=== PATIENT | female | born 1970 | race Caucasian/White ===

== ENCOUNTER 2017-03-18 15:14 | Outpatient (CLI) | payer OTHER ==
--- NOTE | 2017-03-19 12:58 | XRAY Report ---
TWO VIEW CHEST: 03/19/2017 CLINICAL INDICATION: Chest pain on breathing. COMPARISON: 06/09/2007. FINDINGS: Frontal and lateral views of the chest demonstrate a normal cardiac silhouette. The lungs are clear. No effusion or pneumothorax is present. IMPRESSION: NORMAL CHEST. TD: 03/19/2017 12:57
== END 2017-03-18 15:15 | disposition home or self-care (01) ==
LOC: DI.S 15:14
PROVIDERS: ATTEND Internal Medicine
DX: R07.1 Chest pain on breathing (principal)
CPT/HCPCS: 71046

== ENCOUNTER 2017-03-19 13:17 | Outpatient (CLI) | payer OTHER ==
--- NOTE | 2017-03-20 15:27 | Mammography Report ---
DIGITAL SCREENING MAMMOGRAM: 03/19/2017 CLINICAL INDICATION: A 46-year-old with history of bilateral implants, for screening. TECHNIQUE: Routine CC and MLO projections were obtained of the breasts. Bilateral implant-displaced views. COMPARISON: 07/2007. FINDINGS: The breasts again demonstrate heterogeneously dense fibroglandular parenchyma bilaterally. A few coarse, typically benign calcifications are present. Bilateral subpectoral silicone implants are present. No suspicious masses, clustered microcalcifications, or regions of architectural distortion are identified. IMPRESSION: BENIGN FINDINGS. RECOMMENDATION: ROUTINE ANNUAL SCREENING UNLESS OTHERWISE CLINICALLY INDICATED. BIRADS CATEGORY 2-BENIGN FINDINGS. STANDARD QUALIFYING STATEMENTS: 1. This examination was reviewed with the aid of Computer-Aided Detection (CAD). 2. A negative or benign imaging report should not delay biopsy if clinically suspicious findings are present. Consider surgical consultation if warranted. More than 5% of cancers are not identified by imaging. 3. Dense breasts may obscure an underlying neoplasm. TD: 03/20/2017 15:27
== END 2017-03-19 13:18 | disposition home or self-care (01) ==
LOC: DI.S 13:17
PROVIDERS: ATTEND Internal Medicine
DX: Z12.31 Encounter for screening mammogram for malignant neoplasm of breast (principal); Z98.82 Breast implant status
CPT/HCPCS: 77067

== ENCOUNTER 2017-08-04 13:03 | Outpatient (CLI) | payer OTHER ==
--- NOTE | 2017-08-04 14:06 | XRAY Report ---
Procedure Date: 08/04/2017 Accession Number: [id number] / [id number] Procedure: XRS - Cervical Spine Complete CPT Code: FULL RESULT: EXAM: Cervical Spine Complete DATE: 08/04/2017 1:40 PM CLINICAL HISTORY: Neck pain COMPARISON: MRI 05/12/2008 TECHNIQUE: 5 views. FINDINGS: Alignment: Normal. No spondylolisthesis or scoliosis. Bones: The cervical vertebral bodies and posterior elements are well visualized from the skull base through C7-T1. No fractures or bone lesions. Disks: Degenerative disc disease at C5-6 and 6-7, with bilateral osseous neuroforaminal narrowing. Facets: Degenerative facet disease at C5-6 and C6-7. Soft Tissues: Normal. No prevertebral soft tissue swelling. The visualized lung apices are clear. IMPRESSION: Degenerative changes at C5-6 and 6-7, with bilateral osseous neural foraminal narrowing. No evidence of fracture. RADIA
--- NOTE | 2017-08-04 14:07 | XRAY Report ---
Procedure Date: 08/04/2017 Accession Number: [id number] / [id number] Procedure: XRS - Lumbar Spine 2 View CPT Code: FULL RESULT: EXAM: Lumbar Spine 2 View DATE: 08/04/2017 1:40 PM CLINICAL HISTORY: PAIN IN LEFT HIP,DORSALGIA, UNSPECIFIED COMPARISON: None. TECHNIQUE: 3 views. FINDINGS: Alignment: Minimal levoscoliosis, which may be positional in nature. Bones: Five sei-cim-kmrbtmd lumbar vertebral bodies are present. No fractures or bone lesions. Disks: Normal. Disk heights are maintained. Facets: Minimal facet arthropathy at L5-S1. Sacroiliac Joints: Unremarkable. Soft Tissues: Normal. The visualized bowel gas pattern is normal. IMPRESSION: Minimal degenerative changes. No evidence of fracture. RADIA
--- NOTE | 2017-08-04 14:07 | XRAY Report ---
Procedure Date: 08/04/2017 Accession Number: [id number] / [id number] Procedure: XRS - Hip w/Pelvis 2-3V LT CPT Code: FULL RESULT: EXAM: Hip w/Pelvis 2-3V LT DATE: 08/04/2017 1:39 PM CLINICAL HISTORY: PAIN IN LEFT HIP,DORSALGIA, UNSPECIFIED COMPARISON: None. TECHNIQUE: 1 view of the pelvis and 1 view of the hip. FINDINGS: Bones: Normal. No fracture or bone lesion. Joints: The bilateral hip, pubis symphysis, and sacroiliac joints are preserved. Soft Tissues: Normal. No soft tissue swelling. IMPRESSION: Normal pelvis and hip radiography. RADIA
== END 2017-08-04 13:04 | disposition home or self-care (01) ==
LOC: DI.S 13:03
PROVIDERS: ATTEND Internal Medicine
DX: M25.552 Pain in left hip (principal); M50.322 Other cervical disc degeneration at C5-C6 level; M47.892 Other spondylosis, cervical region; M47.897 Other spondylosis, lumbosacral region
CPT/HCPCS: 72050; 72100

== ENCOUNTER 2017-08-20 12:44 | Outpatient (CLI) | payer OTHER ==
[2017-08-20] MEDS ORDERED: GADOBUTROL 7.5 MMOL/7.5 ML VIAL IVP ONE (18:37)
--- NOTE | 2017-08-21 16:01 | MRI Report ---
Procedure Date: 08/20/2017 Accession Number: [id number] / [id number] Procedure: MRI - Cervical Spine W/WO CPT Code: FULL RESULT: EXAM: MRI CERVICAL SPINE WITHOUT AND WITH CONTRAST EXAM DATE: 08/20/2017 03:31 PM. CLINICAL HISTORY: 46-year-old female. CERVICALGIA. COMPARISON: MRI cervical spine 05/12/2008. TECHNIQUE: Multiplanar, multisequence T1-weighted and fluid-sensitive sequences of the cervical spine before and after administration of intravenous contrast. Other: None. IV contrast: 6 is a Gadavist. FINDINGS: Neurologic Structures: The visualized posterior fossa structures are unremarkable. No signal abnormality in the visualized spinal cord. Alignment: Grade 1 retrolisthesis C6 on C7 measuring 2 mm. Bone Marrow: No gross fractures or bone lesions. No marrow edema or abnormal enhancement. Redemonstration moderate diffuse, likely congenital shallowness of cervical central canal with canal AP diameter measuring 10-11 mm at most cervical levels. Interspace Levels/Facets: C1-C2: Unremarkable. C2-C3: Minimal disk bulge. No significant central canal or foraminal narrowing. No interval progression. C3-C4: Mild disk bulge, slightly progressed since the prior study. Mild central canal narrowing, slightly progressed, no foraminal narrowing. C4-C5: Mild distal, slightly progressed. Mild central canal narrowing, slightly progressed. No foraminal narrowing. C5-C6: Moderate disk height loss and desiccation. Moderate posterior disk osteophyte complex, slightly increased. Moderate right and mild left uncovertebral spurring. Moderate central canal narrowing, slightly progressed. Gtgu-na-uxmunvlg right and mild left foraminal narrowing, slightly progressed. C6-C7: Moderate disk height loss and desiccation. Moderate posterior disk osteophyte complex. Moderate bilateral uncovertebral spurring. Moderate right and mild left facet arthropathy. Moderate central canal narrowing, slightly progressed. Ybxf-tz-txnnqpuw bilateral foraminal narrowing, slightly progressed. C7-T1: Unremarkable. Spinal Canal: No enhancing lesions within the spinal canal. No epidural abscess. Musculature: Normal. No edema, enhancement, or fatty atrophy. Other: The paravertebral and prevertebral soft tissues are normal. IMPRESSION: 1. Mild to moderate multilevel degenerative spondylosis, as detailed above and summarized below. Compared to the prior study from 05/12/2008, there has been slight interval progression of central canal/foraminal narrowing at most levels. 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 2. C3-C4 level demonstrates mild central canal narrowing, slightly progressed, no foraminal narrowing. 3. C4-C5 level demonstrates mild central canal narrowing, slightly progressed. No foraminal narrowing. 4. C5-C6 level demonstrates moderate central canal narrowing, slightly progressed. Jrqy-pp-xhvazbgx right and mild left foraminal narrowing, slightly progressed. 5. C6-C7 level demonstrates moderate central canal narrowing, slightly progressed. Oqio-yz-vqpnztpc bilateral foraminal narrowing, slightly progressed. RADIA
== END 2017-08-20 12:45 | disposition home or self-care (01) ==
LOC: DI 12:44
PROVIDERS: ATTEND Internal Medicine
DX: M50.31 Other cervical disc degeneration, high cervical region (principal); M47.892 Other spondylosis, cervical region; M48.02 Spinal stenosis, cervical region
CPT/HCPCS: 72156; A9585

== ENCOUNTER 2017-11-10 13:55 | Outpatient (CLI) | payer OTHER ==
--- NOTE | 2017-11-10 15:23 | MRI Report ---
Reason: CERVICAL SPINE DEGENERATION Procedure Date: 11/10/2017 Accession Number: [id number] / [id number] Procedure: MRI - Thoracic Spine W/O CPT Code: FULL RESULT: EXAM: MRI THORACIC SPINE WITHOUT CONTRAST EXAM DATE: 11/10/2017 02:47 PM. CLINICAL HISTORY: 46-year-old with back pain and radiculopathy. Evaluate for thoracic pathology. COMPARISONS: MR cervical spine 08/20/2017; MR lumbar spine 11/10/2017. TECHNIQUE: Multiplanar, multisequence T1-weighted and fluid-sensitive sequences of the thoracic spine from C7 to L1 without contrast. Other: None. FINDINGS: Spinal Canal: No signal abnormality in the visualized spinal cord. Alignment: No scoliosis or spondylolisthesis. Bone Marrow: No acute fracture. There is endplate edema seen at L1-L2 and L2-L3 there may be degenerative in nature. No abnormal marrow replacing lesion. Disk Levels/Facets: Mild endplate degenerative change with mild loss of disk height and disk desiccation seen from C7-T1 to T11-T12. No definite spinal protrusion/bulge seen. Minimal bilateral foot across that disease. No significant spinal canal stenosis. No significant neural foraminal narrowing. Musculature: Normal. No edema or fatty atrophy. Other: The visualized lungs, mediastinum, and abdominal cavity are unremarkable. IMPRESSION: 1. No definite T2 signal hyperintense lesion seen within the visualized thoracic cord. 2. Minimal multilevel degenerative changes with no significant spinal canal stenosis or neuroforaminal narrowing seen within the thoracic spine. RADIA
== END 2017-11-10 13:56 | disposition home or self-care (01) ==
LOC: DI 13:55
PROVIDERS: ATTEND Nurse Practitioner Family
DX: M54.6 Pain in thoracic spine (principal); M47.812 Spondylosis without myelopathy or radiculopathy, cervical region; M51.16 Intervertebral disc disorders with radiculopathy, lumbar region; M48.061 Spinal stenosis, lumbar region without neurogenic claudication
CPT/HCPCS: 72146; 72148

== ENCOUNTER 2017-11-10 14:08 | Outpatient (CLI) | payer OTHER ==
--- NOTE | 2017-11-10 15:28 | MRI Report ---
Reason: RADICULAR LEG PAIN Procedure Date: 11/10/2017 Accession Number: [id number] / [id number] Procedure: MRI - Lumbar Spine W/O CPT Code: FULL RESULT: EXAM: MRI LUMBAR SPINE WITHOUT CONTRAST EXAM DATE: 11/10/2017 03:13 PM. CLINICAL HISTORY: 47-year-old with low back pain and bilateral radicular leg pain. COMPARISON: Lumbar radiographs 08/04/2017; MR thoracic spine 11/10/2017. TECHNIQUE: Multiplanar, multisequence T1-weighted and fluid-sensitive sequences of the lumbar spine from T12 to S1 without contrast. Other: None. FINDINGS: Spinal Canal: The conus terminates at L1-L2. The conus medullaris and cauda equina are unremarkable. Alignment: There is minimal grade 1 retrolisthesis of L2 on L3, L3 on L4 and L5 on S1. Bone Marrow: Five kns-jhl-ganekek lumbar vertebral bodies are assumed. No acute fracture. There is endplate edema seen at L1-L2 and L2-L3 there may be degenerative in nature. No abnormal marrow replacing lesion. Disk Levels/Facets: Mild endplate degenerative changes with mild loss of disk height and disk desiccation seen throughout the lumbar spine. T11-T12: Minimal bilateral arthritic facet disease. No spinal canal stenosis. No neural foraminal narrowing. T12-L1: Minimal bilateral arthritic facet disease. No spinal canal stenosis. No neuroforaminal narrowing. L1-L2: Minimal bilateral arthritic facet disease. Fluid is seen within the facets bilaterally. No spinal canal stenosis. No neural foraminal narrowing. L2-L3: Minimal bilateral arthritic facet disease. No spinal canal stenosis. No neural foraminal narrowing. L3-L4: Minimal bilateral arthritic facet disease. No spinal canal stenosis. No neural foraminal narrowing. L4-L5: Small posterior disk bulge, bilateral thick facet disease, prominent epidural fat. Mild to moderate spinal canal stenosis. Mild bilateral neuroforaminal narrowing. L5-S1: Small posterior disk bulge and bilateral thick facet disease. Effacement of the lateral recesses. Minimal right and mild left neuroforaminal narrowing. Musculature: Normal. No edema or fatty atrophy. Other: The partially visualized retroperitoneum is unremarkable. IMPRESSION: 1. There is minimal grade 1 retrolisthesis of L2 on L3, L3 on L4 and L5 on S1. 2. Minimal multilevel degenerative changes. L4-L5: Mild to moderate spinal canal stenosis. Mild bilateral neuroforaminal narrowing. L5-S1: Effacement of the lateral recesses. Minimal right and mild left neuroforaminal narrowing. Comment: The following findings are so common in adults without low back pain that while we report their presence, they must be interpreted with caution and in the context of the clinical situation. (Reference Leak et al, Spine 2001) Prevalence of findings in patients without low back pain: Disk degeneration (any evidence): 92% Disk desiccation/T2 signal loss: 83% Disk height loss: 56% Disk bulge: 64% Disk protrusion: 32% Annular tear/high intensity zone: 38% RADIA
== END 2017-11-10 14:09 | disposition home or self-care (01) ==
LOC: DI 14:08
PROVIDERS: ATTEND Family Medicine
DX: M51.16 Intervertebral disc disorders with radiculopathy, lumbar region (principal); M48.061 Spinal stenosis, lumbar region without neurogenic claudication
CPT/HCPCS: 72148

== ENCOUNTER 2018-04-30 08:51 | Emergency (ER) | payer OTHER ==
[2018-04-30] MEDS ORDERED: ONDANSETRON ODT 4 MG TABLET TL STA (09:17)
--- NOTE | 2018-04-30 09:20 | ED Physician Documentation ---
PD HPI URI - Stated complaint Stated Complaint: NEAR SYNCOPE/FEVER/NAUSEA/SORE THROAT - Chief complaint Chief Complaint: General - History obtained from History obtained from: Patient - History of Present Illness Timing - onset: Yesterday Timing details: Still present Associated symptoms: Chills, Sore throat, Dry cough Similar symptoms before: Has not had sx before - Additional information Additional information: The patient is a 47-year-old female who presents with a plethora of symptoms, including sore throat, cough with shortness of breath, headache, myalgias, chills, and chest discomfort. Her symptoms started yesterday and are worse this morning. She vomited once this morning. She denies history of similar symptoms in the past. Review of Systems Constitutional: reports: Chills, Myalgias, Fatigue Eyes: denies: Irritation Ears: denies: Tinnitus/ringing Nose: reports: Congestion Throat: reports: Sore throat Cardiac: reports: Chest pain / pressure (upper substernal) Respiratory: reports: Dyspnea, Cough GI: reports: Nausea, Vomiting. denies: Abdominal Pain, Diarrhea : denies: Dysuria Skin: denies: Rash Musculoskeletal: denies: Extremity pain Neurologic: reports: Headache. denies: Focal weakness, Numbness PD PAST MEDICAL HISTORY - Past Medical History Cardiovascular: None Endocrine/Autoimmune: None - Present Medications Home Medications: Ambulatory Orders Medication Instructions Recorded Confirmed Oseltamivir [Tamiflu] 75 mg PO BID #10 capsule 04/30/18 - Allergies Allergies/Adverse Reactions: Allergies Allergy/AdvReac Type Severity Reaction Status Date / Time No Known Drug Allergies Allergy Verified 04/30/18 09:27 - Social History Does the pt smoke?: No PD ED PE NORMAL - Vitals Vital signs reviewed: Yes (normal) - General General: Alert and oriented X 3, Well developed/nourished, Other (Appears fa tigued.) - HEENT HEENT: Atraumatic, EOMI, Moist mucous membranes, Pharynx benign - Neck Neck: Supple, no meningeal sign, No adenopathy, No JVD - Cardiac Cardiac: RRR, No murmur - Respiratory Respiratory: Clear bilaterally - Abdomen Abdomen: Soft, Non tender - Back Back: No CVA TTP - Derm Derm: No rash - Extremities Extremities: No edema, No calf tenderness / cord - Neuro Neuro: Alert and oriented X 3, No motor deficit, Normal speech Results - Vitals Vitals: Vital Signs - 24 hr 04/30/18 04/30/18 08:55 09:25 Temperature 36.3 C L Heart Rate 66 63 Respiratory 16 16 Rate Blood Pressure 131/73 H 117/66 O2 Saturation 100 98 Oxygen O2 Source Room air - Labs Labs: Laboratory Tests 04/30/18 09:00 Influenza A (Rapid) POSITIVE H Influenza B (Rapid) Negative PD MEDICAL DECISION MAKING - ED course Complexity details: reviewed results, re-evaluated patient, considered differential, d/w patient ED course: The patient's presentation is most consistent with influenza, and her nasal swab is positive for influenza A. Her presentation does not suggest pneumonia. Treatment in the emergency department included administration of ibuprofen 800 mg orally and Tamiflu 75 mg orally. She is being discharged with prescription for Tamiflu. I discussed with her the expected course of illness, outpatient treatment and follow-up, as well as potentially worrisome signs or symptoms that should prompt reevaluation in the emergency department. Departure - Departure Disposition: 01 Home, Self Care Clinical Impression: Influenza A Condition: Stable Instructions: ED Flu Follow-Up: ZE DHALIWAL MD [Primary Care Provider] - Prescriptions: Oseltamivir [Tamiflu] 75 mg PO BID #10 capsule Comments: Drink plenty of fluids. Take Tamiflu twice daily as prescribed. You can use ibuprofen, up to 800 mg 3 times daily for its anti-inflammatory effect. Follow-up with your primary physician within 1-2 weeks. Call to schedule an appointment. Return to the emergency department if you develop increasing difficulty breathing, or otherwise worsening symptoms.
[2018-04-30] MEDS ORDERED: OSELTAMIVIR 75 MG CAPSULE PO STA (11:05)
[2018-04-30 11:14] VITALS: BP 112/69
== END 2018-04-30 11:15 | disposition home or self-care (01) ==
LOC: ED 08:51
DX: J10.1 Influenza due to other identified influenza virus with other respiratory manifestations (principal)
CPT/HCPCS: 87275; 87276; 99283; A9270; Q0162

== ENCOUNTER 2019-07-05 15:45 | Emergency (ER) | payer OTHER ==
[2019-07-05 16:09] LABS: BASOPHILS % (AUTO) 0.3 %; EOSINOPHILS % (AUTO) 0.2 %; HGB - HEMOGLOBIN 14.6 g/dL (12.0-16.0); LYMPHOCYTES # (AUTO) 1.2 10^3/uL (1.5-3.5); LYMPHOCYTES % (AUTO) 10.2 %; MEAN CORPUSCULAR HEMOGLOBIN 32.1 pg (27.0-31.0); MEAN CORPUSCULAR HGB CONC 33.4 g/dL (32.0-36.0); MEAN PLATELET VOLUME 11.4 fL (7.9-10.8); MONOCYTES # (AUTO) 0.5 10^3/uL (0.0-1.0); MONOCYTES % (AUTO) 4.6 %; NEUTROPHILS # (AUTO) 9.8 10^3/uL (1.5-6.6); NEUTROPHILS % (AUTO) 84.1 %; PLT - PLATELET COUNT 228 10^3/uL (130-450); RED BLOOD COUNT 4.55 10^6/uL (4.20-5.40); RED CELL DISTRIBUTION WIDTH 12.7 % (12.0-15.0); WHITE BLOOD COUNT 11.7 x10^3/uL (4.8-10.8)
[2019-07-05 16:21] LABS: ALBUMIN 4.2 g/dL (3.2-5.5); ALBUMIN/GLOBULIN RATIO 1.4 (1.0-2.2); BILIRUBIN,TOTAL 0.9 mg/dL (0.2-1.0); CALCIUM 8.7 mg/dL (8.5-10.3); CREATININE 0.7 mg/dL (0.4-1.0); TOTAL PROTEIN 7.2 g/dL (6.7-8.2)
--- NOTE | 2019-07-05 17:36 | ED Physician Documentation ---
PD HPI NVD - Stated complaint Stated Complaint: NAUSEA/VOMITING - Chief complaint Chief Complaint: Abd Pain - History obtained from History obtained from: Patient - History of Present Illness Timing - onset: Today, Last night Timing - details: Abrupt onset (sudden nausea with vomiting. No diarrhea. No noted unusual foods.), Still present (less vomiting into afternoon but still nauseated and feeling dehydrated/weak.) Associated symptoms: Loss of appetite. No: Fever, Abdominal pain, Chest pain, Hematemesis, Near syncope / syncope Contributing factors: No: Sick contact, Bad food, Alcohol use Improved by: No: Vomiting Worsened by: Eating Similar symptoms before: Has not had sx before Review of Systems Constitutional: reports: Chills, Myalgias. denies: Fever Nose: denies: Rhinorrhea / runny nose, Congestion Throat: denies: Sore throat Cardiac: denies: Chest pain / pressure Respiratory: denies: Cough GI: reports: Nausea, Vomiting. denies: Abdominal Pain, Diarrhea Neurologic: reports: Generalized weakness. denies: Focal weakness, Near syncope, Headache PD PAST MEDICAL HISTORY - Past Medical History Cardiovascular: None Endocrine/Autoimmune: None - Past Surgical History Past Surgical History: No /[employer]: Tubal ligation, Breast implants - Present Medications Home Medications: Ambulatory Orders Medication Instructions Recorded Confirmed Oseltamivir [Tamiflu] 75 mg PO BID #10 capsule 04/30/18 - Allergies Allergies/Adverse Reactions: Allergies Allergy/AdvReac Type Severity Reaction Status Date / Time No Known Drug Allergies Allergy Verified 07/05/19 15:57 - Social History Does the pt smoke?: No Smoking Status: Never smoker Does the pt drink ETOH?: No Does the pt have substance abuse?: No - Immunizations Immunizations are current?: Yes PD ED PE NORMAL - Vitals Vital signs reviewed: Yes - General General: Alert and oriented X 3, No acute distress, Well developed/nourished - HEENT HEENT: Pharynx benign. No: Moist mucous membranes - Neck Neck: Supple, no meningeal sign, No adenopathy - Cardiac Cardiac: RRR, No murmur - Respiratory Respiratory: Clear bilaterally - Abdomen Abdomen: Normal bowel sounds, Soft, Non tender, Non distended, No organomegaly - Back Back: No CVA TTP - Derm Derm: Normal color, Warm and dry - Neuro Neuro: Alert and oriented X 3, No motor deficit, Normal speech Results - Vitals Vitals: Vital Signs - 24 hr 07/05/19 07/05/19 07/05/19 15:53 17:35 19:10 Temperature 36.5 C 37 C Heart Rate 79 68 77 Respiratory 18 16 16 Rate Blood Pressure 118/87 H 123/83 H 116/76 O2 Saturation 98 99 100 07/05/19 07/05/19 07/05/19 19:16 19:49 20:02 Temperature Heart Rate Respiratory 17 16 16 Rate Blood Pressure O2 Saturation Oxygen O2 Source Room air - Labs Labs: Laboratory Tests 07/05/19 07/05/19 07/05/19 16:03 16:03 17:37 WBC 11.7 H RBC 4.55 Hgb 14.6 Hct 43.7 MCV 96.0 MCH 32.1 H MCHC 33.4 RDW 12.7 Plt Count 228 MPV 11.4 H Neut # (Auto) 9.8 H Lymph # (Auto) 1.2 L [place] # (Auto) 0.5 Eos # (Auto) 0.0 Baso # (Auto) 0.0 Absolute Nucleated RBC 0.00 Nucleated RBC % 0.0 Sodium 135 Potassium 3.8 Chloride 102 Carbon Dioxide 24 Anion Gap 9.0 BUN 11 Creatinine 0.7 Estimated GFR (MDRD) 89 Glucose 101 H Calcium 8.7 Total Bilirubin 0.9 AST 25 ALT 43 Alkaline Phosphatase 100 Total Protein 7.2 Albumin 4.2 Globulin 3.0 Albumin/Globulin Ratio 1.4 Lipase 28 Urine Color YELLOW Urine Clarity CLEAR Urine pH 7.0 Ur Specific [place] 1.010 Urine Protein NEGATIVE Urine Glucose (UA) NEGATIVE Urine Ketones 15 H Urine Occult Blood NEGATIVE Urine Nitrite NEGATIVE Urine Bilirubin NEGATIVE Urine Urobilinogen 0.2 (NORMAL) Ur Leukocyte Esterase NEGATIVE Ur Microscopic Review NOT INDICATED Urine Culture Comments NOT INDICATED PD MEDICAL DECISION MAKING - ED course Complexity details: re-evaluated patient (feeling much better after IV fluids. ), considered differential (seems likely food related or viral GE. Nontender abd so low suspicion for surgical process. ), d/w patient Departure - Departure Disposition: 01 Home, Self Care Clinical Impression: Dehydration Nausea and vomiting Qualifiers: Vomiting type: unspecified Vomiting Intractability: non-intractable Qualified Code(s): R11.2 - Nausea with vomiting, unspecified Condition: Stable Record reviewed to determine appropriate education?: Yes Instructions: ED Nausea Vomiting Comments: Frequent fluids. Use your ondansetron at home if needed for nausea. Presumably this was a transient illness for a day or 2 and hopefully will just be gone in the next day or so. Return if worsening symptoms. Discharge Date/Time: 07/05/19 20:21
[2019-07-05] MEDS ORDERED: SODIUM CHLORIDE 0.9% 1,000 ML IV STA ×2 (17:59→18:00)
[2019-07-05] MEDS ORDERED: FAMOTIDINE 20 MG/2 ML SYRINGE IVP STA (18:00)
[2019-07-05 18:42] LABS: BILIRUBIN,URINE NEGATIVE (NEGATIVE); GLUCOSE, URINE (UA) NEGATIVE (NEGATIVE); KETONES,URINE (UA) 15 mg/dL (NEGATIVE); LEUKOCYTE ESTERASE, URINE NEGATIVE (NEGATIVE); NITRITE,URINE NEGATIVE (NEGATIVE); OCCULT BLOOD,URINE NEGATIVE (NEGATIVE); PROTEIN,URINE NEGATIVE (NEGATIVE); UROBILINOGEN,URINE 0.2 (NORMAL) E.U./dL (NORMAL)
[2019-07-05 18:46] LABS: CLARITY,URINE CLEAR (CLEAR)
[2019-07-05 19:11] VITALS: BP 116/76
== END 2019-07-05 20:21 | disposition home or self-care (01) ==
LOC: ED 15:45
DX: E86.0 Dehydration (principal); R11.2 Nausea with vomiting, unspecified
CPT/HCPCS: 36415; 80053; 81001; 81003; 83690; 85025; 87086; 96361; 96374; 99284

== ENCOUNTER 2022-01-09 13:02 | Outpatient (CLI) | payer OTHER ==
--- NOTE | 2022-01-09 09:38 | XRAY Report ---
PROCEDURE: Chest 2 View X-Ray INDICATIONS: CHEST CONGESTION TECHNIQUE: 2 views of the chest were acquired. COMPARISON: None FINDINGS: Surgical changes and devices: None. Lungs and pleura: No pleural effusions or pneumothorax. Lungs are clear. Mediastinum: Mediastinal contours are normal. Heart size is normal. Bones and chest wall: No suspicious bony abnormalities. Soft tissues appear unremarkable. IMPRESSION: No acute pulmonary process. Reviewed by: Ambar Rojo MD on 01/09/2022 9:37 AM [facility] [[email or web address]] Approved by: Ambar Rojo MD on 01/09/2022 9:37 AM [facility] [[email or web address]] Station ID: [id number]
== END 2022-01-09 13:03 | disposition home or self-care (01) ==
LOC: DI.S 13:02
PROVIDERS: ATTEND Physician Assistant Medical
DX: R09.89 Other specified symptoms and signs involving the circulatory and respiratory systems (principal)

== ENCOUNTER 2022-06-13 07:00 | Outpatient (CLI) | payer OTHER ==
--- NOTE | 2022-06-13 14:48 | XRAY Report ---
PROCEDURE: Chest 2 View X-Ray INDICATIONS: COUGH TECHNIQUE: 2 views of the chest were acquired. COMPARISON: None. FINDINGS: Surgical changes and devices: None. Lungs and pleura: No pleural effusions or pneumothorax. Lungs are clear. Mediastinum: Mediastinal contours appear normal. Heart size is normal. Bones and chest wall: No suspicious bony lesions. Overlying soft tissues appear unremarkable. IMPRESSION: No acute cardiopulmonary process. Reviewed by: Leo Perales on 06/13/2022 2:47 PM PDT Approved by: Leo Perales on 06/13/2022 2:47 PM PDT Station ID: [id number]
== END 2022-06-13 23:59 | disposition home or self-care (01) ==
LOC: DI.S 07:00
PROVIDERS: ATTEND Physician Assistant
DX: R05.9 Cough, unspecified (principal); R07.9 Chest pain, unspecified; J06.9 Acute upper respiratory infection, unspecified

== ENCOUNTER 2022-07-17 16:15 | Outpatient (CLI) | payer OTHER ==
[2022-07-17] MEDS ORDERED: ALBUTEROL 1 PUFF INH STA (17:40)
== END 2022-07-17 16:16 | disposition home or self-care (01) ==
LOC: RT 16:15
PROVIDERS: ATTEND Internal Medicine
DX: J45.909 Unspecified asthma, uncomplicated (principal)
CPT/HCPCS: 94060; 94729

== ENCOUNTER 2022-10-02 08:00 | Outpatient (CLI) | payer OTHER ==
--- NOTE | 2022-10-02 15:15 | XRAY Report ---
PROCEDURE: Wrist 3 View RT INDICATIONS: RIGHT WRIST CYST TECHNIQUE: 3 views of the wrist were acquired. COMPARISON: None. FINDINGS: Bones: No fractures or dislocations. No suspicious bony lesions. Soft tissues: No suspicious soft tissue calcifications or masses. Cyst is not well appreciated by ra diograph, mild soft tissue fullness within this region.. IMPRESSION: The cyst is not well appreciated by radiograph. Mild soft tissue fullness within this region. Reviewed by: Vahid Jimenez MD on 10/02/2022 3:14 PM PDT Approved by: Vahid Jimenez MD on 10/02/2022 3:14 PM PDT Station ID: [id number]
== END 2022-10-02 23:59 | disposition home or self-care (01) ==
LOC: DI.WOS 08:00
PROVIDERS: ATTEND Physician Assistant Surgical
DX: M67.431 Ganglion, right wrist (principal)

== ENCOUNTER 2023-02-07 08:50 | Outpatient (CLI) | payer OTHER ==
--- NOTE | 2023-02-10 12:44 | MRI Report ---
PROCEDURE: WRIST WO - RT INDICATIONS: GANGNLION CYST RIGHT WRIST TECHNIQUE: Noncontrast coronal T1 spin echo, proton density fast spin echo and T2 fast spin echo with fat satura tion; coronal 3-D gradient echo, axial T1 spin echo and T2 fast spin echo with fat saturation, sagitt al T1 spin echo through the wrist. COMPARISON: None. FINDINGS: Image quality: Excellent. Bones and cartilage: The carpal bones are normally aligned. No bone marrow contusions or fractures. No evidence for avascular necrosis. Moderate degenerative changes are seen in the 1st carpometaca rpal joint with cartilage loss, subchondral cystic changes and edema, and small marginal osteophytes. Nonspecific cystic changes are seen in the 3rd metacarpal head. Carpal ligaments: The scapholunate and lunotriquetral ligaments appear intact. On sagittal images, t he pisohamate ligament appears intact. Triangular fibrocartilage complex: The triangular fibrocartilage appears intact. Tendons and soft tissues: The carpal tunnel structures appear normal, including the median nerve. T he ulnar nerve appears normal within Guyon's canal. Small amount of fluid is seen along the distal 1s t flexor compartment tendons that may indicate mild tenosynovitis. Mild extensor carpi ulnaris tendin osis. The remaining extensor tendon compartments demonstrate normal morphology, without pathologic te ndon sheath fluid. A ganglion cyst is seen at the dorsal radial aspect of the wrist extending the sub cutaneous tissues measuring approximately 13 x 10 x 11 mm. IMPRESSION: 1.Ganglion cyst is seen at the dorsal radial aspect of the wrist measuring up to 13 mm in maximum dim ension. 2.Mild tenosynovitis of the abductor pollicis longus and extensor pollicis brevis tendons in the 1st extensor compartment. 3.Mild extensor carpi ulnaris tendinosis. 4.Moderate 1st carpometacarpal osteoarthrosis. Reviewed by: Daniel Roca MD on 02/10/2023 12:43 PM PST Approved by: Daniel Roca MD on 02/10/2023 12:43 PM PST Station ID: [id number]
== END 2023-02-07 08:51 | disposition home or self-care (01) ==
LOC: DI 08:50
PROVIDERS: ATTEND Orthopaedic Surgery
DX: M67.431 Ganglion, right wrist (principal); M18.11 Unilateral primary osteoarthritis of first carpometacarpal joint, right hand; M65.9 Synovitis and tenosynovitis, unspecified

== ENCOUNTER 2023-03-18 06:18 | Day surgery (SDC) | payer OTHER ==
[2023-03-18] MEDS: CELECOXIB 100 MG CAPSULE PO ONE (06:55)
--- NOTE | 2023-03-18 06:57 | ANESTHESIA ---
Pre-Anesthesia VS, & Labs - Diagnosis R wrist ganglion cyst - Procedure excision R wrist ganglion cyst Height: 5 ft 1 in - NPO >8 hours - Is Patient ?: No - Lab Results Lab results reviewed: Yes Home Medications and Allergies Home Medications: Ambulatory Orders Albuterol Sulf [Ventolin Hfa Inhaler] 1 - 2 puffs INH Q4HR PRN 03/11/23 ONDANSETRON ODT Prepack 2 [ZOFRAN ODT Prepack 2] 4 mg TL Q6H PRN 03/11/23 Albuterol Sulf [Ventolin Hfa Inhaler] 1 - 2 puffs INH Q4HR PRN 03/11/23 ONDANSETRON ODT Prepack 2 [ZOFRAN ODT Prepack 2] 4 mg TL Q6H PRN 03/11/23 Allergies/Adverse Reactions: Allergies Allergy/AdvReac Type Severity Reaction Status Date / Time doxycycline AdvReac Mild Nausea Verified 03/18/23 07:10 acetaminophen [From Tylenol] AdvReac nausea / Verified 03/18/23 07:10 vomiting Anes History & Medical History - Anesthetic History Anesthesia Complications: reports: No previous complications Family history of Anesthesia Complications: Denies Family history of Malignant Hyperthermia: Denies - Medical History Cardiovascular: reports: None Pulmonary: reports: Asthma Gastrointestinal: reports: None Urinary: reports: None Neuro: reports: None Musculoskeletal: reports: Osteoarthritis, Fatigue Endocrine/Autoimmune: reports: None Blood Disorders: reports: None Skin: reports: None Smoking Status: Never smoker - Surgical History Gynecologic: reports: Tubal ligation, Breast implants Exam General: Alert, Oriented x3, Cooperative Dental: WNL Mouth Openin Fingerbreadth Neck Mobility: Normal Mallampati classification: II Respiratory: Lungs clear, Normal breath sounds, No respiratory distress Cardiovascular: Regular rate Neurological: Normal speech Mental/Cognitive Status: Alert/Oriented X3, Normal for patient Cognitive Status: Within normal limits Plan Anesthesia Type: Total IV Consent for Procedure(s) Verified and Reviewed: Yes Code Status: Attempt Resuscitation ASA classification: 2-Mild systemic disease Is this case an emergency?: No
[2023-03-18] MEDS ORDERED: BUPIVACAINE 0.25% PF 30 ML VIAL ONE (07:04)
[2023-03-18] MEDS: LACTATED RINGERS 1,000 ML IV ONE ×2 (07:04→08:31)
[2023-03-18] MEDS ORDERED: fentaNYL 100 MCG/2 ML VIAL ONE (07:13)
[2023-03-18] MEDS ORDERED: MIDAZOLAM 2 MG/2 ML VIAL ONE (07:13)
[2023-03-18] MEDS ORDERED: PROPOFOL 500 MG/50 ML 500 MG/50 ML VIAL ONE (07:13)
[2023-03-18] MEDS ORDERED: NALOXONE 0.4 MG/ML VIAL IVP PRN (07:21)
[2023-03-18] MEDS ORDERED: ATROPINE ABBOJECT 1 MG/10 ML SYRINGE IVP PRN (07:21)
[2023-03-18] MEDS ORDERED: ePHEDrine 50 MG/ML VIAL IVP PRN (07:21)
[2023-03-18] MEDS ORDERED: ONDANSETRON 4 MG/2 ML VIAL IVP PRN ×2 (07:21→08:39)
[2023-03-18] MEDS ORDERED: HYDROmorphone 0.5 MG/0.5 ML SYRINGE IVP PRN (07:21)
[2023-03-18] MEDS ORDERED: METOCLOPRAMIDE 10 MG/2 ML VIAL IVP PRN (07:21)
[2023-03-18] MEDS ORDERED: MORPHINE 2 MG/ML CARPUJECT IVP PRN (07:21)
[2023-03-18] MEDS ORDERED: fentaNYL 100 MCG/2 ML VIAL IVP PRN (07:21)
[2023-03-18] MEDS ORDERED: ONDANSETRON 4 MG/2 ML VIAL ONE (07:36)
[2023-03-18] MEDS ORDERED: LACTATED RINGERS 1,000 ML IV SCH (08:00)
[2023-03-18] MEDS: BUPIVACAINE 0.25% PF 30 ML VIAL SUBQ ONE ×2 (08:01)
[2023-03-18] MEDS ORDERED: PROPOFOL 200 MG/20 ML VIAL IVP ONE (08:10)
--- NOTE | 2023-03-18 08:32 | OPERATIVE REPORT ---
Operative Report - General Procedure Date: 03/18/23 Planned Procedure: Excision of ganglion cyst first extensor compartment right wrist Pre-Op Diagnosis: Ganglion cyst first extensor compartment right wrist Procedure Performed: Excision of ganglion cyst first extensor compartment right wrist Post Op Diagnosis: Same as preoperative diagnosis - Procedure Note Primary Surgeon: Osito Bruno MD Secondary Surgeon: Meme Amin PAC Anesthesia Provider: Cesar Torres CRNA Anesthesia Technique: MAC Estimated Blood Loss (mL): 2 Indications: This is a 52-year-old woman who has had a mass about the radial aspect of her right wrist off-and-on for about 10 years. The mass has persisted and gives her discomfort with activities involving wrist use. She has had the mass aspirated and it has recurred. The mass is well localized to the first extensor c ompartment. Is a discrete mass with definitive borders, nontender, neurovascular intact and x-rays normal. An informed consent for removal of the ganglion cyst from the right wrist was obtained prior to surgery. Findings: She had a typical appearing ganglion cyst, discrete sac with jellylike contents, localized to the first extensor compartment, overlying the radial styloid and retinaculum Complications: None - Other Other Information/Narrative: The patient was brought to the operating room. She was placed in the supine position. After satisfactory anesthesia was obtained, the right arm was placed over a arm extension table. A pneumatic tourniquet was applied to the proximal right arm over cast padding. The right upper extremity was prepped and draped in a sterile manner in the usual fashion. The timeout procedure was performed by the entire operating room team and all were in agreement. The right upper extremity was exsanguinated. The pneumatic tourniquet was elevated to 200 mmHg. A longitudinal incision was made directly over the mass on the radial aspect of the wrist. The entire procedure was performed using Zeiss 3.2 loupe magnification. Branches of the superficial radial nerve were protected. The dissection was achieved using an Allis clamp to provide traction. The mass was freed using a combination of a [place] elevator, tenotomy scissors and electrocautery. The mass was removed with a small button of capsular tissue overlying the radial styloid, leaving the retinaculum intact. The tendons of the first extensor compartment were retracted in the volar direction and protected. The mass was incised en bloc and sent to pathology. The tourniquet was deflated. Hemostasis was achieved with electrocautery. The skin was closed with 3 oh strata fix subcuticular suture, Dermabond, soft sterile dressing. The patient tolerated the procedure well.A physician portfolio assistant was medically necessary to help with prepping and draping, positioning, protection of vital structures, assistance during the procedure including wound closure, dressing and/or splinting.
[2023-03-18] MEDS ORDERED: oxyCODONE 5 MG TABLET PO PRN (08:39)
[2023-03-18 08:47] VITALS: O2SAT 100
[2023-03-18] MEDS: oxyCODONE 5 MG TABLET ONE (08:47)
[2023-03-18 10:16] VITALS: BP 124/72
--- NOTE | 2023-03-18 12:20 | ANESTHESIA POST OP EVALUATION ---
Anesthesia Post Eval - Post Anesthesia Eval Vitals: Last Vital Signs Temp 36.3 C L 03/18/23 09:24 Pulse 68 03/18/23 09:24 Resp 15 03/18/23 09:24 BP 124/72 03/18/23 09:24 Pulse Ox 100 03/18/23 09:24 O2 Flow Rate CV Function Including HR & BP: Stable Pain Control: Satisfactory Nausea & Vomiting: Negative Mental Status: Baseline Respiratory Status: Airway Patent Hydration Status: Satisfactory Anesthesia Complications: None
== END 2023-03-18 06:19 | disposition home or self-care (01) ==
LOC: SDS 06:18
PROVIDERS: ATTEND Orthopaedic Surgery
PROC: 0RBN0ZZ Excision of Right Wrist Joint, Open Approach (ICD-10-PCS; principal; 2023-03-18 07:30)
DX: M67.431 Ganglion, right wrist (principal); J45.909 Unspecified asthma, uncomplicated
CPT/HCPCS: 25111; A9270; J7120

== ENCOUNTER 2023-04-16 07:09 | Outpatient (CLI) | payer OTHER ==
[2023-04-16 14:36] LABS: BASOPHILS # (AUTO) 0.1 10^3/uL (0.0-0.1); BASOPHILS % (AUTO) 0.9 %; EOSINOPHILS # (AUTO) 0.1 10^3/uL (0.0-0.7); EOSINOPHILS % (AUTO) 1.8 %; HCT - HEMATOCRIT 43.4 % (37.0-47.0); HGB - HEMOGLOBIN 13.9 g/dL (12.0-16.0); LYMPHOCYTES # (AUTO) 2.1 10^3/uL (1.5-3.5); LYMPHOCYTES % (AUTO) 31.1 %; MEAN CORPUSCULAR HEMOGLOBIN 30.9 pg (27.0-31.0); MEAN CORPUSCULAR VOLUME 96.4 fL (81.0-99.0); MEAN PLATELET VOLUME 12.4 fL (7.9-10.8); MONOCYTES # (AUTO) 0.6 10^3/uL (0.0-1.0); MONOCYTES % (AUTO) 8.3 %; NEUTROPHILS # (AUTO) 3.8 10^3/uL (1.5-6.6); NEUTROPHILS % (AUTO) 57.7 %; PLT - PLATELET COUNT 238 10^3/uL (130-450); RED CELL DISTRIBUTION WIDTH 12.6 % (12.0-15.0); WHITE BLOOD COUNT 6.7 x10^3/uL (4.8-10.8)
[2023-04-16 15:18] LABS: THYROID STIMULATING HORMONE 1.01 uIU/mL (0.34-5.60)
[2023-04-16 15:50] LABS: ALBUMIN 4.4 g/dL (3.2-5.5); ALBUMIN/GLOBULIN RATIO 1.7 (1.0-2.2); ALKALINE PHOSPHATASE 110 IU/L (42-121); ALT ALANINE AMINOTRANSFERASE 23 IU/L (10-60); AST ASPARTATE AMINOTRANSFERASE 19 IU/L (10-42); BILIRUBIN,TOTAL 0.5 mg/dL (0.2-1.0); BUN - BLOOD UREA NITROGEN 15 mg/dL (6-20); CARBON DIOXIDE - CO2 29 mmol/L (21-32); CHLORIDE 105 mmol/L (101-111); CHOL/HDL RATIO 4.4 (<4.4); CHOLESTEROL 276 mg/dL; CREATININE 0.9 mg/dL (0.6-1.3); CRP - C-REACTIVE PROTEIN < 0.5 mg/dL (<0.5); GFR - MDRD 65 (>89); GLUCOSE 96 mg/dL (74-104); HDL CHOLESTEROL 63 mg/dL; LDL CHOLESTEROL,CALCULATED 187 mg/dL; POTASSIUM 4.1 mmol/L (3.5-4.5); SODIUM 140 mmol/L (135-145); TRIGLYCERIDES 130 mg/dL (48-352); VLDL CHOLESTEROL 26 mg/dL
== END 2023-04-16 07:10 | disposition home or self-care (01) ==
LOC: LAB.S 07:09
PROVIDERS: ATTEND Internal Medicine
DX: R53.82 Chronic fatigue, unspecified (principal); Z13.220 Encounter for screening for lipoid disorders
CPT/HCPCS: 36415; 80053; 80061; 83721; 84443; 85025; 86140